=== PATIENT | female | born 1955 | race Caucasian/White ===

== ENCOUNTER 2021-12-07 05:44 | Day surgery (SDC) | payer MEDICARE ==
[2021-12-05 10:33] LABS: BASOPHILS % (AUTO) 0.6 % (0.0-5.0); HEMATOCRIT 35.4 % (36-48); LYMPHOCYTES % (AUTO) 25.2 % (21.0-51.0); MEAN CORPUSCULAR HEMOGLOBIN 24.1 pg (27.0-33.0); MEAN CORPUSCULAR HGB CONC 29.9 g/dL (32.0-36.0); MEAN CORPUSCULAR VOLUME 80.5 fL (79-99); MONOCYTES % (AUTO) 4.9 % (3.0-13.0); NEUTROPHILS % (AUTO) 65.8 % (40.0-77.0); PLATELET COUNT (AUTO) 234 K/uL (130-400); RED CELL DISTRIBUTION WIDTH 15.3 % (11.0-15.5); WHITE BLOOD COUNT (AUTO) 8.3 K/uL (4.8-10.8)
[2021-12-05 10:43] LABS: CREATININE 0.8 mg/dL (0.5-1.5); POTASSIUM 3.9 mmol/L (3.5-5.1)
[2021-12-06 10:46] VITALS: BP 120/72
[2021-12-07] VITALS (19 sets, daily range): BP systolic 121–150; BP diastolic 63–80
[~2021-12-07] VITALS: Ht 180.3 cm; Wt 97.1 kg
[~2021-12-07 05:44] MED LIST: ATEN1TAB3 PO; ATOR40TA71 PO; CEFAZOLIN SODIUM 2 GM VIAL IV SCH; GLIP10TA9 PO; LEVO88CA4 PO; METF-444 PO; THYR60TA35 PO; TRAM50TA4 PO
[2021-12-07] MEDS ORDERED: CEFAZOLIN SODIUM 1 GM VIAL ONE (06:15)
[2021-12-07] MEDS ORDERED: LACTATED RINGERS 1000ML 0 ML IV ONE (06:15)
[2021-12-07] MEDS ORDERED: 0.9%NACL 1000ML 1,000 ML IV ONE (06:18)
[2021-12-07] MEDS ORDERED: FAMOTIDINE 20MG VIAL IV ONE (07:14)
[2021-12-07] MEDS ORDERED: PROPOFOL 10 MG/ML 20ML VIAL IV ONE (07:19)
[2021-12-07] MEDS ORDERED: GLYCOPYRROLATE 1 MG/5 ML SYRINGE ONE (07:19)
[2021-12-07] MEDS ORDERED: ROCURONIUM 10MG/1ML SYR 10 MG/ML ML ONE (07:20)
[2021-12-07] MEDS ORDERED: FENTANYL CITRATE PF 50 MCG/1 ML 2ML VIAL ONE ×2 (07:20→08:49)
[2021-12-07] MEDS ORDERED: MIDAZOLAM HCL 1 MG/ML 2ML VIAL ONE (07:20)
[2021-12-07] MEDS ORDERED: CEFAZOLIN SODIUM 2 GM VIAL IV ONE (08:11)
[2021-12-07] MEDS ORDERED: ONDANSETRON 4MG INJ ONE (08:30)
[2021-12-07] MEDS ORDERED: BUPIVACAINE/PF 0.25% 30ML VIAL IJ ONE ×2 (08:37→09:23)
[2021-12-07] MEDS ORDERED: MEPERIDINE-PF 25 MG/ML SYG ONE ×3 (08:49→10:17)
[2021-12-07] MEDS ORDERED: NEOSTIGMINE 5MG/5ML SYR IV ONE (09:24)
== END 2021-12-07 12:10 | disposition home or self-care (01) ==
LOC: DAH 05:44
PROVIDERS: ATTEND Student in an Organized Health Care Education/Training Program
DX: M17.12 Unilateral primary osteoarthritis, left knee (principal); M23.42 Loose body in knee, left knee; M22.42 Chondromalacia patellae, left knee; E11.9 Type 2 diabetes mellitus without complications; I10 Essential (primary) hypertension; K21.9 Gastro-esophageal reflux disease without esophagitis; F32.A Depression, unspecified; E03.9 Hypothyroidism, unspecified; Z98.890 Other specified postprocedural states; Z90.89 Acquired absence of other organs; Z98.891 History of uterine scar from previous surgery; Z79.899 Other long term (current) drug therapy; Z79.84 Long term (current) use of oral hypoglycemic drugs; Z79.890 Hormone replacement therapy
CPT/HCPCS: 80048; 85025; 36415; 87635; 93005; 29877; 82948 ×2; C9803; J7120; A4649 ×2; J0690 ×2; J3490 ×4; J3010 ×2; J2710; J7030; J2250; J2704; J2405; J2175 ×2; A6223; A4215; A4223; A4222; A4221; A4663; A6450